=== PATIENT | female | born 1990 | race Hispanic/Latino ===

== ENCOUNTER 2021-10-10 18:35 | Emergency (ER) | payer MEDICAID ==
[~2021-10-10] VITALS: Ht 160 cm; Wt 113.9 kg
[2021-10-10 19:39] LABS: BASOPHILS % (AUTO) 0.4 % (0.0-5.0); EOSINOPHILS % (AUTO) 0.4 % (0.0-8.0); HEMATOCRIT 30.1 % (36-48); LYMPHOCYTES % (AUTO) 27.4 % (21.0-51.0); MEAN CORPUSCULAR HEMOGLOBIN 27.3 pg (27.0-33.0); MEAN CORPUSCULAR HGB CONC 32.2 g/dL (32.0-36.0); MEAN CORPUSCULAR VOLUME 84.8 fL (79-99); MONOCYTES % (AUTO) 12.3 % (3.0-13.0); NEUTROPHILS % (AUTO) 57.8 % (40.0-77.0); PLATELET COUNT (AUTO) 249 K/uL (130-400); RED BLOOD CELL COUNT(AUTO) 3.55 MIL/uL (4.00-5.50); RED CELL DISTRIBUTION WIDTH 13.9 % (11.0-15.5); WHITE BLOOD COUNT (AUTO) 5.4 K/uL (4.8-10.8)
[2021-10-10 19:53] LABS: CARBON DIOXIDE 25 mmol/L (21-32); CHLORIDE 104 mmol/L (101-111); CREATININE 1.4 mg/dL (0.5-1.5); GLOMERULAR FILTR. RATE CALC 46 mL/min (>60); GLUCOSE,RANDOM 260 mg/dL (70-105); POTASSIUM 3.9 mmol/L (3.5-5.1); SODIUM SERUM 137 mmol/L (136-145); UREA NITROGEN, BLOOD 19 mg/dL (7-18)
[2021-10-10 19:58] LABS: ALANINE AMINOTRANSFERASE 34 U/L (12-78); ALBUMIN 1.3 g/dL (3.5-5.0); ASPARTATE AMINOTRANSFERASE 33 U/L (10-37)
[2021-10-10 20:03] LABS: BILIRUBIN,TOTAL < 0.1 mg/dL (0.2-1.0)
[2021-10-10] MEDS ORDERED: IOHEXOL-350 75 ML VIAL IV ONE (21:41)
[2021-10-10] MEDS ORDERED: ONDANSETRON 4MG INJ IVP ONE (22:00)
[2021-10-10] MEDS ORDERED: MORPHINE 4 MG SYG IV ONE (22:00)
[2021-10-10] MEDS ORDERED: MORPHINE 4 MG SYG ONE (22:30)
[2021-10-10] MEDS ORDERED: ONDANSETRON 4MG INJ ONE (22:30)
[2021-10-10 22:36] LABS: APPEARANCE,URINE Clear (CLEAR); BILIRUBIN,URINE Negative (NEGATIVE); COLOR,URINE Yellow (YELLOW); GLUCOSE, URINE (UA) >=1000 mg/dL (NEGATIVE); KETONES,URINE Negative (NEGATIVE); LEUKOCYTE ESTERASE ,URINE Trace (NEGATIVE); NITRATE,URINE Negative (NEGATIVE); OCCULT BLOOD,URINE Moderate (NEGATIVE); PROTEIN,URINE >=1000 mg/dL (NEGATIVE); UROBILINOGEN,URINE 0.2 mg/dL (0.2-1.0)
[2021-10-10 22:38] LABS: HCG,QUAL RESULT NEGATIVE (NEGATIVE)
[2021-10-10 22:43] LABS: BACTERIA,URINE Moderate /HPF (None Seen)
[2021-10-10] MEDS ORDERED: DICY20TA2 PO (23:44)
[2021-10-11 00:10] VITALS: BP 132/88
== END 2021-10-11 00:10 | disposition home or self-care (01) ==
LOC: EDH 18:35
DX: A08.4 Viral intestinal infection, unspecified (principal); E03.9 Hypothyroidism, unspecified; E11.9 Type 2 diabetes mellitus without complications; I10 Essential (primary) hypertension; M19.90 Unspecified osteoarthritis, unspecified site; Z79.899 Other long term (current) drug therapy; Z90.49 Acquired absence of other specified parts of digestive tract
CPT/HCPCS: 36415; 74177; 80053; 81001; 81025; 83690; 85025; 87077 ×2; 87088; 87186 ×2; 96374; 96375; 99285; J2270; J2405; J3490; Q9967